=== PATIENT | male | born 1980 ===

== ENCOUNTER 2018-03-30 14:52 | Emergency (ER) | payer BC ==
[2018-03-30 15:01] VITALS: BP 154/75
[2018-03-30] MEDS ORDERED: Ketorolac INJ* 30 MG/ML 1 ML VIAL IM ONE (15:15)
[2018-03-30] MEDS ORDERED: Ondansetron ODT TAB* 4 MG PO ONE (15:15)
--- NOTE | 2018-03-30 15:18 | UC ---
Abdominal Pain Male HPI - HPI Summary HPI Summary: The patient is a 37-year-old male with the sudden onset of right flank pain this afternoon. the pain radiates to his right testicle. He has had diaphoresis and nausea as well as dry heaves. He has never had a kidney stone. He denies any fever. - History of Current Complaint Chief Complaint: UCAbdominalPain Stated Complaint: SIDE PAIN,CHILLS Time Seen by Provider: 03/30/18 14:54 Hx Obtained From: Patient Onset/Duration: Sudden Onset, Lasting Hours Timing: Constant Severity Initially: Severe Severity Currently: Moderate Pain Intensity: 8 Pain Scale Used: 0-10 Numeric Location: Other - right flank Radiates: Yes Radiates to: Inguinal - right testicle Character: Colicy Alleviating Factor(s): Nothing Associated Signs And Symptoms: Positive: Diaphoresis, Nausea - Allergies/Home Medications Allergies/Adverse Reactions: Allergies Allergy/AdvReac Type Severity Reaction Status Date / Time Penicillins Allergy body rash. Verified 03/30/18 15:01 Home Medications: Home Medications NK [No Home Medications Reported] 03/30/18 [History Confirmed 03/30/18] PMH/Surg Hx/FS Hx/Imm Hx Previously Healthy: Yes - Surgical History Surgical History: None - Family History Known Family History: Positive: Hypertension, Other - not very familar with his family history - Social History Alcohol Use: Rare Substance Use Type: None Smoking Status (MU): Never Smoked Tobacco Review of Systems All Other Systems Reviewed And Are Negative: Yes Constitutional: Positive: Negative Skin: Positive: Negative Eyes: Positive: Negative ENT: Positive: Negative Respiratory: Positive: Negative Cardiovascular: Positive: Negative Gastrointestinal: Positive: Abdominal Pain - right flank, Nausea Genitourinary: Positive: Negative Motor: Positive: Negative Neurovascular: Positive: Negative Musculoskeletal: Positive: Negative Neurological: Positive: Negative Psychological: Positive: Negative Physical Exam Triage Information Reviewed: Yes Appearance: Well-Appearing, Well-Nourished, Pain Distress Vital Signs: Initial Vital Signs Temp 97 F 03/30/18 14:56 Pulse 55 03/30/18 14:56 Resp 17 03/30/18 14:56 BP 154/75 03/30/18 14:56 Pulse Ox 100 03/30/18 14:56 Vital Signs Reviewed: Yes Eyes: Positive: Conjunctiva Clear ENT: Positive: Hearing grossly normal. Negative: Nasal congestion, Nasal drainage, Trismus, Muffled voice Neck: Positive: Supple, Nontender, No Lymphadenopathy Respiratory: Positive: Lungs clear, Normal breath sounds, No respiratory distress, No accessory muscle use Cardiovascular: Positive: RRR, No Murmur, Bradycardia Abdomen Description: Positive: Nontender, No Organomegaly, Soft, CVA Tenderness (R). Negative: Distended, Guarding Musculoskeletal: Positive: ROM Intact Neurological: Positive: Alert Psychological Exam: Normal Diagnostics - Laboratory Diagnostic Studies Completed/Ordered: UA ++rbcs Re-Evaluation - Re-Evaluation First Eval Re-Evaluation Time: 15:42 Change: Unchanged - possible minimal relief Abd Pain Male Course/Dx - Course Course Of Treatment: pt informed he may have a kidney stone. I have advised he go to the ER for further investigation and management of his symptoms. Given option of EMS transfer with IVFs and IV analgesia vs POV. Her prefers to be driven to ER rather that go via EMS - Differential Dx/Clinical Impression Provider Diagnosis: Acute right flank pain, Microscopic hematuria Discharge - Sign-Out/Discharge Documenting (check all that apply): Patient Departure All imaging exams completed and their final reports reviewed: No Studies - Discharge Plan Condition: Stable Disposition: HOME-RECOMMEND TO ED Patient Education Materials: Renal Colic (ED) Additional Instructions: I suggest you go to the ER I suspect a kidney stone - Billing Disposition and Condition Condition: STABLE Disposition: Home-Recommend to ED
== END 2018-03-30 15:45 | disposition home health service (06) ==
LOC: UCEAST 14:52
DX: R31.29 Other microscopic hematuria (principal); R10.9 Unspecified abdominal pain; Z88.0 Allergy status to penicillin
CPT/HCPCS: 81003; 96372; 99202; A9270-GY; G0463; J1885

== ENCOUNTER 2018-03-30 16:07 | Emergency (ER) | payer BC ==
[2018-03-30] MEDS ORDERED: Morphine VIAL* 4 MG/ML VIAL (1 ml vial) IV ONE (16:32)
--- NOTE | 2018-03-30 16:40 | ED ---
Abdominal Pain/Male - HPI Summary HPI Summary: A 37 y/o M presents to ED referred from [facility] to r/o kidney stones with c/o sudden onset R flank pain onset approx 2 hours ago. The pain is rated as 8 out of 10 at bedside and radiates mildly to his testicles. Associated sx: nausea. Pt was given Toradol and Zofran at [facility] but they did not provide relief. Denies PMHx, surgeries. He is a non-smoker, no ETOH. - History of Current Complaint Chief Complaint: EDFlankPain Stated Complaint: PAIN IN RT SIDE Time Seen by Provider: 03/30/18 16:25 Hx Obtained From: Patient Onset/Duration: Sudden Onset, Lasting Hours, Still Present Timing: Constant, Lasting Hours Severity Initially: Moderate Severity Currently: Severe Pain Intensity: 8 Pain Scale Used: 0-10 Numeric Location: Flank - R Radiates: Yes Radiates to: Other - testicals, mildly Associated Signs And Symptoms: Positive: Nausea - Allergies/Home Medications Allergies/Adverse Reactions: Allergies Allergy/AdvReac Type Severity Reaction Status Date / Time Penicillins Allergy body rash. Verified 03/30/18 15:01 PMH/Surg Hx/FS Hx/Imm Hx Previously Healthy: Yes Respiratory History: Denies: Hx Chronic Obstructive Pulmonary Disease (COPD) Sensory History: Denies: Hx Legally Blind Opthamlomology History: Denies: Hx Legally Blind EENT History: Denies: Hx Deafness Neurological History: Denies: Hx Dementia Infectious Disease History: No Infectious Disease History: Denies: Traveled Outside the [place] in Last 30 Days - Family History Known Family History: Positive: Hypertension, Other - not very familar with his family history - Social History Occupation: Employed Full-time Lives: With Family Alcohol Use: Rare Hx Substance Use: No Substance Use Type: Reports: None Hx Tobacco Use: No Smoking Status (MU): Never Smoked Tobacco Review of Systems Negative: Fever Positive: Nausea Positive: flank pain - R, other - pos: mild testicular pain All Other Systems Reviewed And Are Negative: Yes Physical Exam - Summary Physical Exam Summary: VITAL SIGNS: Reviewed. GENERAL: Patient is a well-developed and nourished male who is lying comfortable in the stretcher. Patient is not in any acute respiratory distress. HEAD AND FACE: Normocephalic and atraumatic. EYES: PERRLA, EOMI x 2, No injected conjunctiva. EARS: Hearing grossly intact. Ear canals and tympanic membranes are WNL. MOUTH: Oropharynx within normal limits. NECK: Supple, trachea is midline, no adenopathy, no JVD. CHEST: Symmetric, no tenderness at palpation LUNGS: Clear to auscultation bilaterally. No wheezing or crackles. CVS: RRR, S1 and S2 present, no murmurs or gallops appreciated. ABDOMEN: Soft, R CVA tenderness. No signs of distention. Positive bowel sounds. No rebound, no guarding, and no masses palpated. No abdominal bruit or pulsations. EXTREMITIES: FROM in all major joints, no edema, no cyanosis or clubbing. NEURO: Alert and oriented x 3. No acute neurological deficits. Speech is normal. SKIN: Clammy and warm Triage Information Reviewed: Yes Vital Signs On Initial Exam: Initial Vitals Temp Pulse Resp BP Pulse Ox 96.0 F 63 19 151/90 99 03/30/18 16:10 03/30/18 16:10 03/30/18 16:10 03/30/18 16:10 03/30/18 16:10 Vital Signs Reviewed: Yes Diagnostics - Vital Signs Vital Signs Temp Pulse Resp BP Pulse Ox 03/30/18 16:17 71 99 03/30/18 16:10 96.0 F 63 19 151/90 99 - Laboratory Result Diagrams: 03/30/18 17:09 03/30/18 17:09 Lab Statement: Any lab studies that have been ordered have been reviewed, and results considered in the medical decision making process. - CT A/P CT CT Interpretation Completed By: Radiologist Summary of CT Findings: IMPRESSION: 1. Obstructive 2 mm calculus at the right UVJ causes mild hydronephrosis. 2. A calculus in the superior pole of the left kidney measures 11 x 9 mm. ED provider has reviewed this report. Re-Evaluation - Re-Evaluation 1 Re-Evaluation Time: 18:27 Change: Improved Comment: Pt is feeling much improved. If UA results are negative, will D/C home. Pt is agreeable with this plan. Abdominal Pain Fem Course/Dx - Diagnoses Provider Diagnoses: Renal colic, Kidney stone Discharge - Sign-Out/Discharge Documenting (check all that apply): Patient Departure - Discharge Plan Condition: Stable Disposition: HOME Prescriptions: Oxycodone HCl/Acetaminophen [Percocet] 1 tab PO Q6H PRN #12 tab MDD 4 PRN Reason: Pain Patient Education Materials: Oxycodone/Acetaminophen (By mouth), Kidney Stones (ED), Renal Colic (ED) Forms: *Work Release Referrals: Sadiq Torrez MD [Primary Care Provider] - 3 Days Jonatan Almaraz MD [Medical Doctor] - 3 Days Additional Instructions: Follow up with Dr. Almaraz, urology, in the next 3 days. Follow up with your primary care provider in the next 3 days. RETURN TO THE ED FOR ANY WORSENING OR NEW SYMPTOMS. - Attestation Statements Document Initiated by Scribe: Yes Documenting Scribe: Rosa Maria Robles Provider For Whom Scribe is Documenting (Include Credential): Dr. John Bar MD Scribe Attestation: I, Rosa Maria Robles, scribed for Dr. John Bar MD on 03/30/18 at 1835. Status of Scribe Document: Ready
[2018-03-30 17:19] LABS: ABS Basophils 0 10^3/ul (0-0.2); ABS Eosinophils 0 10^3/ul (0-0.6); ABS Lymphocytes 0.7 10^3/ul (1.0-4.8); ABS Monocytes 0.3 10^3/ul (0-0.8); ABS Neutrophils 8.3 10^3/ul (1.5-7.7); ABS Nucleated RBC 0 10^3/ul; Eosinophil % 0.2 %; Hematocrit 44 % (42-52); Hemoglobin 15.3 g/dl (14.0-18.0); Lymphocyte % 7.5 %; Mean Corpuscular HGB Conc 35 g/dl (31-36); Mean Corpuscular Hemoglobin 29 pg (27-31); Mean Corpuscular Volume 83 fL (80-94); Mean Platelet Volume 8.7 fL (7.4-10.4); Nucleated Red Blood Cells % 0; Platelet Count 162 10^3/ul (150-450); Red Blood Count 5.33 10^6/ul (4.00-5.40); Red Cell Distribution Width 14 % (10.5-15); White Blood Count 9.3 10^3/ul (3.5-10.8)
[2018-03-30 17:39] LABS: Albumin 4.6 g/dL (3.2-5.2); Albumin/Globulin Ratio 1.8 (1-3); BUN/Creatinine Ratio 10.2 (8-20); C Reactive Protein 2.48 mg/L (<8.01); Calcium 9.1 mg/dL (8.6-10.3); EGFR Non-African American 63.8 (>60); Globulin 2.5 g/dL (2-4); Potassium 3.6 mmol/L (3.5-5.0); Total Bilirubin 0.4 mg/dL (0.2-1.0); Total Protein 7.1 g/dL (6.4-8.9)
[2018-03-30] MEDS ORDERED: NS 0.9% 1000 ML* 1,000 ML IV ONE (18:28)
[2018-03-30 18:46] LABS: Urine Appearance Cloudy; Urine Bacteria Absent (Absent); Urine Bilirubin Negative (Negative); Urine Blood 3+ (Negative); Urine Color Amber; Urine Glucose Negative (Negative); Urine Ketones Trace (Negative); Urine Nitrite Negative (Negative); Urine Protein 1+(30 mg/dL) (Negative); Urine Red Blood Cell 3+(>10/hpf) (Absent); Urine Specific Gravity 1.029 (1.010-1.030); Urine Urobilinogen Negative (Negative); Urine White Blood Cell 1+(6-10/hpf) (Absent)
[2018-03-30 19:02] VITALS: BP 102/63
== END 2018-03-30 19:42 | disposition home or self-care (01) ==
LOC: ED 16:07
DX: N23 Unspecified renal colic (principal); N20.0 Calculus of kidney; R10.84 Generalized abdominal pain; R11.0 Nausea; Z88.0 Allergy status to penicillin
CPT/HCPCS: 36415; 74176; 80053; 81003; 81015; 83605; 83690; 85025; 86140; 87086; 96361; 96374; 99283; J2270